=== PATIENT | male | born 1990 | race Caucasian/White ===

== ENCOUNTER 2017-06-24 10:43 | Emergency (ER) | payer OTHER, SELFPAY ==
[2017-06-24] MEDS ORDERED: Acetaminophen 500 MG TAB ONE (11:22)
[2017-06-24] MEDS ORDERED: Ibuprofen 800 MG TAB ONE (11:22)
== END 2017-06-24 12:00 | disposition home or self-care (01) ==
LOC: SCSER 10:43
DX: J11.1 Influenza due to unidentified influenza virus with other respiratory manifestations (principal); K60.2 Anal fissure, unspecified; F31.9 Bipolar disorder, unspecified; F17.210 Nicotine dependence, cigarettes, uncomplicated
CPT/HCPCS: 82274; 93005; 99406

== ENCOUNTER 2017-09-20 15:04 | Emergency (ER) | payer BC, SELFPAY | END 2017-09-20 15:51 | disposition home or self-care (01) | LOC: SCSER 15:04 | DX: M79.641 Pain in right hand (principal); F31.9 Bipolar disorder, unspecified; F17.210 Nicotine dependence, cigarettes, uncomplicated | CPT/HCPCS: 99283 ==

== ENCOUNTER 2018-12-08 13:54 | Emergency (ER) | payer SELFPAY | END 2018-12-08 14:30 | disposition home or self-care (01) | LOC: ERS 13:54 | DX: K03.81 Cracked tooth (principal); B86 Scabies; F31.9 Bipolar disorder, unspecified; F17.210 Nicotine dependence, cigarettes, uncomplicated | CPT/HCPCS: 99282 ==

== ENCOUNTER 2019-05-07 09:15 | Emergency (ER) | payer SELFPAY ==
--- NOTE | 2019-05-07 11:24 | RAD ---
2 VIEW CHEST: Date: 05/07/19 INDICATION: Cough. COMPARISON: 10/27/16. FINDINGS: There is no lobar consolidation. No effusion or pneumothorax. Cardiac silhouette is normal in size. O sseous structures are intact. IMPRESSION: No focal consolidation. POS: C
== END 2019-05-07 09:18 | disposition home or self-care (01) ==
LOC: SCSER 09:15
DX: R05 Cough (principal); F17.210 Nicotine dependence, cigarettes, uncomplicated; F31.9 Bipolar disorder, unspecified; Z71.6 Tobacco abuse counseling; Z79.899 Other long term (current) drug therapy
CPT/HCPCS: 71046; 87804; 99406